=== PATIENT | female | born 2000 | race Caucasian/White ===

== ENCOUNTER → 2023-07-02 08:36 | Outpatient (CLI) | payer MEDICAID, SELFPAY ==
[2023-07-03 07:44] LABS: Progesterone 13.5 ng/mL (.)
== END ==
PROVIDERS: Visit Provider Obstetrics & Gynecology
DX: N92.6 Irregular menstruation, unspecified (principal)
CPT/HCPCS: 36415; 84144; 84702

== ENCOUNTER → 2023-07-12 09:48 | Outpatient (CLI) | payer MEDICAID, SELFPAY ==
[2023-07-12 10:16] LABS: Basophils % 0.3 % (0.1-2.0); Eosinophils % 0.7 % (0.1-12.0); Hematocrit 38.1 % (37.0-47.0); Hemoglobin 12.5 g/dL (12.2-16.2); Lymphocytes # 1.4 K/mm3 (0.7-4.5); Lymphocytes % 26.2 % (10-50); Mean Corpuscular HGB Conc 32.8 g/dL (31.8-35.4); Mean Corpuscular Hemoglobin 29.9 pg (27.0-31.2); Mean Corpuscular Volume 91.2 fl (81-99); Mean Platelet Volume 9.1 fl (7.4-10.4); Monocytes # 0.3 K/mm3 (0.1-1.0); Monocytes % 5.5 % (1.7-9.3); Neutrophils # 3.7 K/mm3 (1.8-7.8); Neutrophils % 67.3 % (37.0-80.0); Platelet Count 266 K/mm3 (142-424); Red Blood Count 4.18 M/mm3 (4.20-5.40); Red Cell Distribution Width 13.4 % (11.5-17.5); White Blood Count 5.5 K/mm3 (4.8-10.8)
[2023-07-13 09:55] LABS: HIV Screen 4th Generation wRfx Non Reactive (Non Reactive)
[2023-07-13 12:12] LABS: Rapid Plasma Reagin Ab Titer Non Reactive titer (NonRea<1:1)
[2023-07-18 12:31] LABS: Hepatitis B Surface Antigen Negative; Hepatitis C Antibody Non Reactive
[2023-07-18 12:32] LABS: Rubella Antibodies, IgG <0.90
== END ==
PROVIDERS: Visit Provider Obstetrics & Gynecology
DX: Z34.91 Encounter for supervision of normal pregnancy, unspecified, first trimester (principal); Z3A.09 9 weeks gestation of pregnancy
CPT/HCPCS: 36415; 85025; 86593; 86703; 86762; 86850; 87086; 87088; 87186; 87340; 87380; G0432

== ENCOUNTER → 2023-07-12 23:26 | Outpatient (CLI) | payer MEDICAID, SELFPAY | PROVIDERS: Visit Provider Obstetrics & Gynecology | DX: Z34.90 Encounter for supervision of normal pregnancy, unspecified, unspecified trimester (principal) ==

== ENCOUNTER → 2023-09-19 07:52 | Outpatient (CLI) | payer MEDICAID, SELFPAY ==
--- NOTE | 2023-09-19 07:53 | US_ITS ---
PROCEDURE: US OB /MATERNAL DETAIL CLINICAL INDICATION: 20 week anatomy scan COMPARISON: No exams were available for comparison FINDINGS: Transabdominal sonographic images of the pelvis were obtained. From her established due date she is 18 weeks 6 days. Single viable intrauterine gestation. Cephalic position. Placenta: Posteriorplacenta grade 1. There is an average amount of fluid. MVP 3.3 cm. The cervix appears satisfactory. Closed and measuring 3.2 cm in length. Complete survey performed and was unremarkable on the submitted images as in PACS. No discrete anomalies identified on survey imaging by technologist. Active fetus. Three-vessel cord with satisfactory umbilical cord insertion. 4- chamber heart noted. Situs, aortic arch, LVOT, RVOT, three-vessel view appear normal. Survey of brain & ventricles Unremarkable. Face and neck survey unremarkable. Profile, nasion, lips and nose appeared normal. Diaphragm and chest views unremarkable. Abdomen: Both kidneys noted and unremarkable. Stomach and bladder noted and satisfactory. Spine: Survey of the spine satisfactory with no anomalies identified nor imaged. Cervical, thoracic and lower spine appear normal. Both arms and legs noted. Amniotic Fluid: Adequate. Measurements: Average ultrasound age 18weeks 6days. Estimated due date by ultrasound age 0402/14/2024. Estimated weight 243g BPD = 19weeks 2days HC = 18weeks 6days AC = 18weeks 4days FL = 18weeks 3days Growth Percentile= 26 Heart Rate = 140bpm Cerebellum = 19weeks 1day Humerus = 18weeks 1day HC/AC is 1.23 FL/BPD is 0.62 FL/AC is 0.21 IMPRESSION: 1. Viable fetus in the cephalic presentation with a posterior placenta grade 1. 2. The fluid is within normal limits. MVP 3.2 cm. 3. Anatomical scan appears normal. 4. biometry is consistent with the dates. Dictated by: Gerardo Aden MD 09/19/2023 09:45 Gerardo Aden MD in OV 09/19/2023 09:45
== END ==
PROVIDERS: PCP Obstetrics & Gynecology; Visit Provider Obstetrics & Gynecology
DX: Z34.92 Encounter for supervision of normal pregnancy, unspecified, second trimester (principal); Z3A.20 20 weeks gestation of pregnancy
CPT/HCPCS: 76811

== ENCOUNTER 2023-10-01 17:47 | Emergency (ER) | payer MEDICAID, SELFPAY ==
[2023-10-01 17:55] VITALS: BP 122/64; PULSE 100; RESP 18; TEMP 36.9; O2SAT 97; BMI 29.7
[2023-10-01 18:09] LABS: Apearance,Urine Clear (Clear); Bilirubin,Urine Negative (Negative); Blood, Urine Negative (Negative); Color,Urine Yellow (Yellow); Glucose,Urine (UA) Negative (Negative); Ketones,Urine Negative (Negative); Protein,Urine Negative (Negative); UTC Leukocyte Esterase,Urine Negative (Negative); UTC Nitrate,Urine Negative (Negative); Urobilinogen,Urine 1 EU/dl (0.2)
[2023-10-01 18:13] LABS: UTC Influenza A Antigen Negative (Negative); UTC Strep Screen (Rapid) Negative (Negative)
[2023-10-01 18:14] LABS: UTC Influenza B Antigen Negative (Negative)
--- NOTE | 2023-10-01 18:16 | EXP.UTC ---
Discharge Plan Disposition Patient Disposition: Xfer Other Condition: Good Prescriptions Prescriptions: No Action Gummies 400 mcg-35 mg- 25 mg-5 mg tablet,chewable 1 tab PO DAILY Referrals Follow up/Referrals: Provider,Referral, MD [Primary Care Provider] - See instructions Clinical Impressions Clinical Impression: Nausea & vomiting Qualifiers: Vomiting type: unspecified Qualified Code(s): R11.2 - Nausea with vomiting, unspecified Diarrhea Qualifiers: Diarrhea type: unspecified type Qualified Code(s): R19.7 - Diarrhea, unspecified Instructions Patient Instructions: Nausea and Vomiting-Adult, Nausea of (Alternative Therapy) Discharge ED Provider: Milagro ([facility])Delphine [facility] [place] HPI General Stated complaint: vomiting, diarrhea, cough, Mode of Arrival: Ambulatory Source of Information: Patient Limitations: No Limitations Time Seen by Provider: 10/01/23 18:17 Description of Symptoms (Recalled from Triage Doc. by RN): vomiting, diarrhea, sore throat, cough, and stomach cramping. SHe is 20 weeks preg. HEENT Symptoms (Recalled from RN notes): No Resp Symptoms (Recalled from RN notes): No Skin Symptoms (Recalled from RN notes): No MS Symptoms (Recalled from RN notes): No Functional Status (Recalled from RN notes): n/a History of Present Illness Provider Complaint: 23 yr old female presents for vomiting, diarrhea, sore throat, cough, and stomach cramping. She is 20 weeks preg. pt states she spoke with dr conley and she was told if she started cramping she needed to go to labor and delivery for eval. pt states she has not been able to eat since thurs and drinks are limited. pt states the last time she felt fluttering was wed. Related Data Home Medications Medication Instructions Recorded Confirmed PNV 153-FA 400 mcg-om3 35 mg-dha 1 tab PO DAILY vitamin 07/12/23 10/01/23 25 mg-epa 5 mg-fish oil chew tablet ( Gummies) Allergies Allergy/AdvReac Type Severity Reaction Status Date / Time No Known Allergies Allergy Verified 10/01/23 18:05 Worker's Comp Is this a Worker's Comp case?: No [facility] Disclaimer: The information contained in this section may have been updated after the patient was seen, as this information can be updated by other users. 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) Smoking Status: Never smoker alcohol intake: never substance use type: denies use current occupational status: employed Travel in the last 8 weeks: None ROS Obtained: Yes All systems reviewed & no additional complaints except as documented Constitutional Constitutional: Reports system reviewed and no additional complaints, except as documented Eyes Eyes: Reports system reviewed and no additional complaints, except as documented ENT Ears, Nose, Mouth, and Throat: Reports system reviewed and no additional complaints, except as documented, Reports as per HPI, Reports nasal congestion, Reports nasal discharge and Reports sore throat Cardiovascular Cardiovascular: Reports system reviewed and no additional complaints, except as documented Respiratory Respiratory: Reports system reviewed and no additional complaints, except as documented Gastrointestinal Gastrointestingal: Reports system reviewed and no additional complaints, except as documented, as per HPI, cramping, diarrhea, nausea and vomiting Genitourinary Female Genitourinary: Reports system reviewed and no additional complaints, except as documented Integumentary/Breasts Skin/Breast:
[2023-10-01 18:21] VITALS: BP 122/64; PULSE 100; RESP 18; TEMP 36.9; O2SAT 97
== END 2023-10-01 18:21 | disposition other institution (70) ==
LOC: UTC 17:50
PROVIDERS: Emergency Provider Nurse Practitioner Family
DX: O26.892 Other specified pregnancy related conditions, second trimester (principal); R10.819 Abdominal tenderness, unspecified site; Z3A.20 20 weeks gestation of pregnancy; R19.7 Diarrhea, unspecified; R05.9 Cough, unspecified; R07.0 Pain in throat; R11.2 Nausea with vomiting, unspecified
CPT/HCPCS: 81003; 87804; 87880; 99204; 99212; G0463

== ENCOUNTER 2023-10-01 18:23 | Outpatient (CLI) | payer MEDICAID, SELFPAY ==
[2023-10-01 18:38] VITALS: BP 139/68; PULSE 84; RESP 18; TEMP 36.9; O2SAT 100; BMI 29.0
== END 2023-10-01 20:45 | disposition home or self-care (01) ==
LOC: OBOUT 18:24 → OB 18:28
PROVIDERS: Visit Provider Obstetrics & Gynecology
DX: O26.892 Other specified pregnancy related conditions, second trimester (principal); Z3A.20 20 weeks gestation of pregnancy; R11.10 Vomiting, unspecified; J02.9 Acute pharyngitis, unspecified; R05.9 Cough, unspecified
CPT/HCPCS: 96365; 96367; G0463; J2405

== ENCOUNTER 2023-11-25 09:01 | Outpatient (CLI) | payer MEDICAID, SELFPAY ==
[2023-11-25 09:30] LABS: Basophils % 0.5 % (0.1-2.0); Eosinophils # 0.1 K/mm3 (0.0-0.4); Eosinophils % 0.9 % (0.1-12.0); Hematocrit 30.3 % (37.0-47.0); Hemoglobin 11.6 g/dL (12.2-16.2); Lymphocytes # 1.3 K/mm3 (0.7-4.5); Mean Corpuscular HGB Conc 38.2 g/dL (31.8-35.4); Mean Corpuscular Hemoglobin 33.7 pg (27.0-31.2); Mean Corpuscular Volume 88.3 fl (81-99); Monocytes # 0.3 K/mm3 (0.1-1.0); Neutrophils # 6.4 K/mm3 (1.8-7.8); Neutrophils % 78.6 % (37.0-80.0); Platelet Count 222 K/mm3 (142-424); Red Blood Count 3.43 M/mm3 (4.20-5.40); Red Cell Distribution Width 13.1 % (11.5-17.5); White Blood Count 8.1 K/mm3 (4.8-10.8)
[2023-11-25] MEDS: RHO(D) IMMUNE GLOBULIN 1,500 UNIT SYRINGE IM (10:55)
[2023-11-25 10:57] LABS: Glucose,Fasting 78 mg/dl (74-100)
[2023-11-25 11:08] VITALS: BP 142/63; PULSE 96; RESP 18; TEMP 36.6; O2SAT 100
[2023-11-25 11:48] LABS: Glucose 1 Hour 94 mg/dL (74-100)
--- NOTE | 2023-11-25 12:00 | PC.NURSE ---
1200-c.narcisa jennings cosigned charting for alex rna
== END 2023-11-25 11:08 | disposition home or self-care (01) ==
PROVIDERS: Visit Provider Obstetrics & Gynecology
DX: O26.893 Other specified pregnancy related conditions, third trimester (principal); Z3A.28 28 weeks gestation of pregnancy; Z67.91 Unspecified blood type, Rh negative
CPT/HCPCS: 36415; 82951; 85025; 96372; J2790

== ENCOUNTER 2023-12-07 17:53 | Outpatient (CLI) | payer MEDICAID, SELFPAY ==
[2023-12-07 19:22] LABS: Strep Scrn Group A (Rapid) Negative (Negative)
== END 2023-12-07 23:59 ==
PROVIDERS: Visit Provider Obstetrics & Gynecology
DX: J02.8 Acute pharyngitis due to other specified organisms (principal)
CPT/HCPCS: 87430

== ENCOUNTER 2023-12-23 11:52 | Outpatient (CLI) | payer MEDICAID, SELFPAY ==
[2023-12-23 12:26] LABS: Basophils % 0.2 % (0.1-2.0); Eosinophils # 0.1 K/mm3 (0.0-0.4); Eosinophils % 0.7 % (0.1-12.0); Hematocrit 34.1 % (37.0-47.0); Lymphocytes # 2.1 K/mm3 (0.7-4.5); Lymphocytes % 24.3 % (10-50); Mean Corpuscular HGB Conc 32.3 g/dL (31.8-35.4); Mean Corpuscular Hemoglobin 28.7 pg (27.0-31.2); Mean Corpuscular Volume 88.8 fl (81-99); Mean Platelet Volume 8.9 fl (7.4-10.4); Monocytes # 0.4 K/mm3 (0.1-1.0); Monocytes % 4.8 % (1.7-9.3); Neutrophils # 6.1 K/mm3 (1.8-7.8); Platelet Count 316 K/mm3 (142-424); Red Blood Count 3.84 M/mm3 (4.20-5.40); Red Cell Distribution Width 13.4 % (11.5-17.5); White Blood Count 8.8 K/mm3 (4.8-10.8)
== END 2023-12-23 23:59 ==
LOC: LAB 11:53
PROVIDERS: Visit Provider Obstetrics & Gynecology
DX: O26.893 Other specified pregnancy related conditions, third trimester (principal); Z3A.36 36 weeks gestation of pregnancy
CPT/HCPCS: 85025

== ENCOUNTER 2024-01-21 13:23 | Outpatient (CLI) | payer MEDICAID, SELFPAY ==
[2024-01-21 13:42] VITALS: BMI 35.2
[2024-01-21 13:46] LABS: Microscopic, Urine URINE MICROSCOPIC (MICROSCOPIC)
[2024-01-21 13:48] LABS: Appearance,Urine CLEAR (Clear); Bilirubin,Urine Negative (Negative); Blood, Urine Negative (Negative); Color,Urine YELLOW (Yellow); Glucose,Urine (UA) Negative (Negative); Ketones,Urine TRACE (Negative); Leukocyte Esterase,Urine Negative (Negative); Nitrate,Urine Negative (Negative); PH,Urine 6.5 (5.0-8.5); Protein,Urine Negative (Negative); Specific Gravity, Urine 1.025 (1.005-1.030); Urobilinogen,Urine 0.2 EU/dl (0.2)
[2024-01-21 13:59] LABS: Bacteria,Urine 1+ /lpf; WBC,Urine Occasional #/hpf (0-3)
[2024-01-21 14:01] LABS: Amphetamine/Metha Screen,Urine Negative ng/ml (<1000)
[2024-01-21 14:02] LABS: Barbiturates Screen,Urine Negative ng/ml (<200); Benzodiazepines Screen,Urine Negative ng/ml (<200)
[2024-01-21 14:03] LABS: Cannabinoid Screen,Urine Negative ng/ml (<50)
[2024-01-21 14:04] LABS: Cocaine Screen,Urine Negative ng/ml (<300); Methadone Screen,Urine Negative ng/ml (<300)
[2024-01-21 14:05] LABS: Opiate Screen,Urine Negative ng/ml (<300); Phencyclidine Screen,Urine Negative ng/ml (<25)
[2024-01-21 14:06] VITALS: BP 121/73; PULSE 94; RESP 18; TEMP 36.8; O2SAT 100; BMI 35.2
== END 2024-01-21 14:32 | disposition home or self-care (01) ==
LOC: OBOUT 13:26 → OB 13:26
PROVIDERS: Visit Provider Obstetrics & Gynecology
DX: O13.3 Gestational [pregnancy-induced] hypertension without significant proteinuria, third trimester (principal); Z3A.36 36 weeks gestation of pregnancy
CPT/HCPCS: 80307; 81001; G0463

== ENCOUNTER 2024-01-26 11:34 | Inpatient (IN) | payer MEDICAID, SELFPAY ==
--- NOTE | 2024-01-26 11:38 | HMH.PHAINT1 ---
Pharmacy Intervention Comments: HOME MEDICATION LIST VERIFIED VIA OUTSIDE PHARMACY
[2024-01-26 11:43] VITALS: BMI 34.7
[2024-01-26 12:19] LABS: Microscopic, Urine URINE MICROSCOPIC (MICROSCOPIC)
[2024-01-26 12:20] LABS: Basophils % 0.3 % (0.1-2.0); Eosinophils % 0.3 % (0.1-12.0); Hematocrit 32.5 % (37.0-47.0); Hemoglobin 10.8 g/dL (12.2-16.2); Lymphocytes % 20.5 % (10-50); Mean Corpuscular HGB Conc 33.1 g/dL (31.8-35.4); Mean Corpuscular Hemoglobin 27.5 pg (27.0-31.2); Mean Corpuscular Volume 83.2 fl (81-99); Mean Platelet Volume 9.3 fl (7.4-10.4); Monocytes # 0.4 K/mm3 (0.1-1.0); Monocytes % 3.6 % (1.7-9.3); Neutrophils # 7.5 K/mm3 (1.8-7.8); Neutrophils % 75.2 % (37.0-80.0); Platelet Count 283 K/mm3 (142-424); Red Blood Count 3.91 M/mm3 (4.20-5.40); Red Cell Distribution Width 14.3 % (11.5-17.5); White Blood Count 9.9 K/mm3 (4.8-10.8)
[2024-01-26 12:24] LABS: Appearance,Urine CLEAR (Clear); Blood, Urine Negative (Negative); Color,Urine YELLOW (Yellow); Glucose,Urine (UA) Negative (Negative); Ketones,Urine 1+ (Negative); Leukocyte Esterase,Urine Negative (Negative); Nitrate,Urine Negative (Negative); Protein,Urine TRACE (Negative); Specific Gravity, Urine 1.025 (1.005-1.030); Urobilinogen,Urine 0.2 EU/dl (0.2)
[2024-01-26] MEDS: DEXTROSE 5%-LACTATED RINGERS 1,000 ML 125 ML IV ×2 (12:31→19:47)
[2024-01-26] MEDS: miSOPROStol 100MCG TABLET 50 MCG PO (12:31)
[2024-01-26] MEDS: LACTATED RINGERS 1000ML 1,000 ML 250 ML IV (12:31)
[2024-01-26 12:35] LABS: Amphetamine/Metha Screen,Urine Negative ng/ml (<1000)
[2024-01-26 12:36] LABS: Barbiturates Screen,Urine Negative ng/ml (<200); Benzodiazepines Screen,Urine Negative ng/ml (<200); Bilirubin,Urine Negative (Negative)
[2024-01-26 12:37] LABS: Cannabinoid Screen,Urine Negative ng/ml (<50); Cocaine Screen,Urine Negative ng/ml (<300)
[2024-01-26 12:38] LABS: Methadone Screen,Urine Negative ng/ml (<300)
[2024-01-26 12:39] LABS: Opiate Screen,Urine Negative ng/ml (<300); Phencyclidine Screen,Urine Negative ng/ml (<25)
[2024-01-26 13:01] VITALS: BP 146/81; PULSE 120; RESP 18; TEMP 36.4; O2SAT 99; BMI 34.7
[2024-01-26 13:36] LABS: Bacteria,Urine 1+ /lpf; Squamous Epithelial Cell,Urine Occasional #/hpf (0-5)
[2024-01-26] MEDS: ACETAMINOPHEN 500MG TAB 1000 MG PO (17:47)
--- NOTE | 2024-01-26 19:21 | EXP.HP ---
History of Present Illness *Admission Date: 01/26/24 *Reason for visit:: Induction *History of present illness: Sara Mack is a 23-year-old G1, P0 at 37 and 2 who presented to labor and delivery for scheduled induction of labor secondary to gestational hypertension. TWAN is 02/14/2024 based on last menstrual period confirmed by first trimester ultrasound. has been complicated by GBS bacteriuria as well. On arrival her blood pressures were 140/80s. She denies any headaches, vision changes, right upper quadrant pain. Sara endorsed good movement, denies any contractions, leakage of fluid, or vaginal bleeding. O-, antibody negative, rubella non-immune, hepatitis B negative, hepatitis C negative, RPR negative, HIV negative 1 hour GTT: 94 GBS bacteriuria PFSH [facility] Disclaimer: The information contained in this section may have been updated after the patient was seen, as this information can be updated by other users. 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 (Updated 01/26/24 @ 19:26 by Lanette Gutierrez DO) Gestational hypertension Screening for genetic disease carrier status GBS bacteriuria Rubella non-immune status, antepartum Rh negative state in antepartum period Surgical History No history of previous surgery Family History Other Diabetes Social History (Updated 01/26/24 @ 15:48 by Purnima Beyer, DEREJE) Smoking Status: Never smoker alcohol intake: never substance use type: denies use current occupational status: employed Travel in the last 8 weeks: None Review of Systems Review of Systems Review of systems (narrative): Review of Systems Constitutional: Denies fever, chills, and sweats Eyes: Denies vision change/ pain Respiratory: Denies cough and shortness of breath Cardiovascular: Denies chest pain and lightheadedness Gastrointestinal: Denies abdominal pain. Denies nausea, vomiting. Genitourinary: Denies dysuria and incontinence Musculoskeletal: Denies shoulder pain and back pain Neurological: Denies change in speech or headaches Meds Home Medications and Allergies Home Medications Medication Instructions Recorded Confirmed Type PNV 153-FA 400 mcg-om3 35 mg-dha 1 tab PO DAILY vitamin 07/12/23 01/26/24 History 25 mg-epa 5 mg-fish oil chew tablet ( Gummies) cyclobenzaprine 5 mg tablet 5 mg PO QHS PRN muscle spasm #30 01/06/24 01/26/24 Rx tabs famotidine 20 mg tablet 20 mg PO BID #60 tabs 01/06/24 01/26/24 Rx New Prescriptions to Start Prescriptions: Allergies Allergy/AdvReac Type Severity Reaction Status Date / Time No Known Allergies Allergy Verified 01/23/24 14:56 Exam Data for Last 24 hours Vital signs and Labs for Last 24 Hours: Temp Pulse Resp BP Pulse Ox O2 Del Method 97.6 F 120 H 18 146/81 H 99 Room Air 01/26/24 13:01 01/26/24 13:01 01/26/24 13:01 01/26/24 13:01 01/26/24 13:01 01/26/24 13:01 Laboratory Results - last 24 hr 01/26/24 11:45: Urine Color Yellow, Urine Appearance Clear, Urine pH 7.0, Ur Specific [place] 1.025, Urine Protein Trace, Urine Glucose (UA) Negative, Urine Ketones 1+, Urine Blood Negative, Urine Nitrate Negative, Urine Bilirubin Negative, Urine Urobilinogen 0.2, Ur Leukocyte Esterase Negative, Urine RBC None, Urine WBC 3-5, Ur Squamous Epith Cells Occasional, Urine Bacteria 1+, Urine Opiates Screen Negative, Urine Methadone Screen Negative, Ur Barbituates Screen Negative, Ur Phencyclidine Scrn Negative, Ur Amphetamines Screen Negative, U Benzodiazepines Scrn Negative, Urine Cocaine Screen Negative, U Marijuana (THC) Screen Negative 01/26/24 12:10: WBC 9.9, RBC 3.91 L, Hgb 10.8 L, Hct 32.5 L, MCV 83.2, MCH 27.5, MCHC 33.1, RDW 14.3, Plt Count 283, MPV 9.3, Neut % (Auto) 75.2, Lymph % (Auto) 20.5, [place] % (Auto) 3.6, Eos % (Auto) 0.3, Baso % (Auto) 0.3, Neut # (Auto) 7.5, Lymph # (Auto) 2.0, [place] # (Auto) 0.4, Eos # (Auto) 0.0, Baso # (Auto) 0.0, Blood Type O Negative, Antibody Screen Negative I & O for Last 24 hours: Intake & Output 01/23/24 01/24/24 01/25/24 01/26/24 23:59 23:59 23:59 23:59 Weight 196 lb Narrative: General: patient is alert oriented in no acute distress and responds appropriately to questions. HEENT: NCAT, EOMI, moist mucous membranes, neck supple with full ROM Cardiovascular: RRR +S1/S2, no murmurs or rubs Pulmonary: Clear to auscultation bilaterally, nonlabored breathing, symmetric chest rise Abdominal: Gravid abdomen appropriate for gestation. No guarding, rebound, or tenderness noted. SVE: On admission c/t/-2/soft/mid position Extremities: trace edema, no tenderness or cyanosis noted Skin: Normal turgor, intact, warm. Negative for erythema, pallor, petechia, or lesions Neurologic: Negative for sensory or motor deficit Psychiatric: Normal affect, normal thought process, good judgment and insight, no depression or anxious mood appreciated. *Routine HEENT Exam Head: Present normocephalic and atraumatic Eye: Present EOMI, PERRL and normal accommodation; Absent conjunctival icterus, scleral injection, nystagmus or exophthalmos ENT: Present mucous membranes moist *Routine Respiratory Exam Respiratory: Present CTA bilaterally, normal respiratory effort, able to speak in complete sentences and symmetric chest movement; Absent accessory muscle use, decreased breath sounds, rales, respiratory distress, wheezes, distant breath sounds or diminished air movement *Routine Cardiovascular Exam Cardiovascular: Present RRR, Normal S1 and Normal S2; Absent murmur or gallop *Routine Abdominal Exam Abdominal: Present soft and normoactive bowel sounds; Absent tenderness, distended, rebound or guarding *Routine Rectal Exam Rectal:: deferred *Routine Genitalia Exam Genitalia:: normal female Assessment and Plan *Assessment and plan (1) Gestational hypertension: Status: Acute Qualifiers: Trimester: third trimester Qualified Code(s): O13.3 - Gestational [-induced] hypertension without significant proteinuria, third trimester Category: Medical Code(s): O13.9 - Gestational [-induced] hypertension without significant proteinuria, unspecified trimester (2) Screening for genetic disease carrier status: Problem Comment: 08/05/23 - [facility] carrier screen negative Status: Acute Category: Medical Code(s): Z13.71 - Encounter for nonprocreative screening for genetic disease carrier status (3) GBS bacteriuria: Problem Comment: Initial OB urine culture demonstrated GBS bactiuria. She will need antibiotics in labor regardless of RV swab. Status: Acute Category: Medical Code(s): R82.71 - Bacteriuria (4) Rubella non-immune status, antepartum: Status: Acute Category: Medical Code(s): O09.899 - Supervision of other high risk pregnancies, unspecified trimester; Z28.39 - Other underimmunization status (5) Rh negative state in antepartum period: Status: Acute Category: Medical Code(s): O26.899 - Other specified related conditions, unspecified trimester; Z67.91 - Unspecified blood type, Rh negative (6) : Status: Acute Qualifiers: Weeks of gestation: 37 weeks Qualified Code(s): Z3A.37 - 37 weeks gestation of Category: Medical Code(s): Z34.90 - Encounter for supervision of normal , unspecified, unspecified trimester (7) Encounter for induction of labor: Status: Acute Category: Medical Code(s): Z34.90 - Encounter for supervision of normal , unspecified, unspecified trimester Plan #37 weeks and 2 days gestation #Induction of labor -Admit to L&D for induction of labor -Plan for induction with 25mcg of vaginal cytotec [id number] per protocol -External FHR and TOCO monitor -Blood type: O+ -Hemoglobin: 10.8, Plt: 283 -Plan for epidural -Anticipate vaginal delivery of Male : Nadeem Yoon #Gestational hypertension -Blood pressures well controlled since arrival -Continue monitor vitals -Continue monitoring PIH labs -Currently not on medications #GBS bacteriuria -Continue GBS prophylaxis with ampicillin, per protocol #Rubella nonimmune -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 Her cervix was previously closed. On reevaluation the cervix was soft and almost a fingertip. A Rowe balloon was able to be inserted with ease after counseling the patient. The balloon will come out after 12 hours. At this time her contractions are still too close together and she is feeling them in her back and lower abdomen to start any other type of augmentation. If her contractions spaced out do not feel she is an appropriate candidate for another dose of Cytotec as it caused uterine tachysystole but she would be a candidate for Pitocin. Discussed low-dose Pitocin to a max of 10 overnight with a Rowe balloon in. In the morning at approximately 0 700 the Rowe balloon will be removed and Pitocin will be started.
[2024-01-26 19:43] LABS: Chloride 109 mmol/L (98-107); Potassium 3.9 mmoL/L (3.5-5.1); Sodium 132 mmol/L (136-145)
[2024-01-26 19:45] LABS: Blood Urea Nitrogen 6 mg/dl (7-17); Creatinine Clearance Estimated 205 mL/min (50-200); Estimated Glomerular Filt Rate 124 ml/min (>60); GFR (African American) 150 ML/MIN (>60)
[2024-01-26 19:46] LABS: Alanine Aminotransferase 21 U/L (12-78); Albumin Level 2.9 g/dl (3.5-5.0); Albumin/Globulin Ratio 1.1 (1.1-1.8); Alkaline Phosphatase 219 U/L (38-126); Anion Gap 6.9 mEq/L (5-15); Aspartate Amino Transferase 29 U/L (14-36); Bilirubin,Total 0.3 mg/dl (0.2-1.3); Calcium 8.7 mg/dl (8.4-10.2); Carbon Dioxide 20 mmol/L (22.0-30.0); Globulin 2.6 g/dL (1.3-3.2); Glucose 124 mg/dl (74-100); Total Protein,Serum 5.5 g/dl (6.3-8.2)
[2024-01-26 21:06] VITALS: BP 123/62; PULSE 80; RESP 17; TEMP 36.6; O2SAT 98
[2024-01-26] MEDS: FAMOTIDINE 20MG TABLET 20 MG PO (21:07)
[2024-01-27 03:52] VITALS: BP 122/77; PULSE 62; RESP 17; TEMP 36.5; O2SAT 100
[2024-01-27] MEDS: AMPICILLIN SODIUM 2 GM in 0.9 % SODIUM CHLORIDE 100 ML IV (04:32)
[2024-01-27] MEDS: OXYTOCIN/RINGERS LACTATE 30 UNITS/500 ML BAG IV (04:32)
[2024-01-27] MEDS: ONDANSETRON 4MG/2ML VIAL 4 MG IV ×2 (05:44→12:41)
[2024-01-27 07:56] VITALS: BP 125/57; PULSE 85; RESP 18; TEMP 36.6; O2SAT 99
--- NOTE | 2024-01-27 09:03 | EXP.LABOR.NO ---
Labor Note Subjective: Date: 01/27/24 Time: 09:03 regular contraction Objective: NST:: Reactive Contractions:: every 2-3 minutes Cervical Dilation:: 1 Effacement:: 80% Station: -2 Membranes: artificially ruptured Fetus: Monitoring?: Yes monitoring type:: External Assessment: Labor progressing?: Yes Problems: (1) 37 weeks gestation of : Category: Medical Code(s): Z3A.37 - 37 weeks gestation of (2) Gestational hypertension: Qualifiers: Trimester: third trimester Qualified Code(s): O13.3 - Gestational [-induced] hypertension without significant proteinuria, third trimester Category: Medical Code(s): O13.9 - Gestational [-induced] hypertension without significant proteinuria, unspecified trimester (3) GBS bacteriuria: Problem Comment: Initial OB urine culture demonstrated GBS bactiuria. She will need antibiotics in labor regardless of RV swab. Category: Medical Code(s): R82.71 - Bacteriuria (4) Rubella non-immune status, antepartum: Category: Medical Code(s): O09.899 - Supervision of other high risk pregnancies, unspecified trimester; Z28.39 - Other underimmunization status (5) Rh negative state in antepartum period: Category: Medical Code(s): O26.899 - Other specified related conditions, unspecified trimester; Z67.91 - Unspecified blood type, Rh negative Plan: Anesthesia for epidural?: Yes Comment:: Amniotomy performed, clear fluid noted Continue pitocin per protocol Close monitoring Plan for epidural
--- NOTE | 2024-01-27 09:04 | EXP.ANES.CKL ---
[facility] Disclaimer: The information contained in this section may have been updated after the patient was seen, as this information can be updated by other users. 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 (Updated 01/27/24 @ 09:01 by Leslee Isidro DO) 37 weeks gestation of Gestational hypertension Screening for genetic disease carrier status GBS bacteriuria Rubella non-immune status, antepartum Rh negative state in antepartum period Surgical History No history of previous surgery Family History Other Diabetes Social History (Updated 01/26/24 @ 15:48 by Purnima Beyer RN) Smoking Status: Never smoker alcohol intake: never substance use type: denies use current occupational status: employed Travel in the last 8 weeks: None [facility] Anesthesia Checklist Patient Identification Patient Identification: Arm Band, Family and Verbal (Name & ) Structural Data Admitted From: Inpatient (OB 278) Planned Operative Procedure/s: Labor Epidural Consent for Planned Operative Procedure(s) Verified: Yes Verified Documents: Surgical Consent and History and Physical NPO Status Verified Time NPO: 00:00 Chart Verification Results Verified: CBC and BMP Additional verifications Patient : Yes Anesthesia Reactions: No Cardiovascular Assessment Heart Sounds: S1 & S2 Pulse Rhythm: Irregular Peripheral Edema: Yes (3+ SHUBHAM LE) Airway Assessment Mallampati Score:: Class I C-Spine Mobility Assessed: Yes (FROM) TMJ Mobility Assessed: Yes Dentition: Good Dentition (Nothing loose per pt.) Neurological Assessment Level of Consciousness: Awake, Alert, Appropriate and Follows Commands Hx Seizures: No Numbness or tingling in extremities: No Anesthesia Plan Anesthesia Risk discussed: Yes Anesthesia Plan: Verified ASA Class: II Anesthesia Type: Epidural
--- NOTE | 2024-01-27 09:05 | EXP.PN ---
Subjective *Date: 01/27/24 *Time: 09:05 Interval history: PROCEDURE NOTE Labor Epidural positioning: Sitting Prep: Betadine x 3 Site: L3-4 Local to skin: Liso 1% x 3mL KENYON to air @ 7.5cm. NEGATIVE CSF, NEGATIVE Heme, NEGATIVE Parasthesia; Catheter easily threaded to 20cm. Test dose: NEGATIVE w/Lido 1.5% w/epi 1:200,000 x 5 mL Catherter pulled back to 15cm @skin. secured. Bolus: Ropivicaine .2% x9mL w/Fentanyl 50mcg. 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 Exam Data for Last 24 hours Vital signs and Labs for Last 24 Hours: Temp Pulse Resp BP Pulse Ox O2 Del Method 97.7 F 62 17 122/77 100 Room Air 01/27/24 03:52 01/27/24 03:52 01/27/24 03:52 01/27/24 03:52 01/27/24 03:52 01/27/24 03:52 Laboratory Results - last 24 hr 01/26/24 11:45: Urine Color Yellow, Urine Appearance Clear, Urine pH 7.0, Ur Specific [place] 1.025, Urine Protein Trace, Urine Glucose (UA) Negative, Urine Ketones 1+, Urine Blood Negative, Urine Nitrate Negative, Urine Bilirubin Negative, Urine Urobilinogen 0.2, Ur Leukocyte Esterase Negative, Urine RBC None, Urine WBC 3-5, Ur Squamous Epith Cells Occasional, Urine Bacteria 1+, Urine Opiates Screen Negative, Urine Methadone Screen Negative, Ur Barbituates Screen Negative, Ur Phencyclidine Scrn Negative, Ur Amphetamines Screen Negative, U Benzodiazepines Scrn Negative, Urine Cocaine Screen Negative, U Marijuana (THC) Screen Negative 01/26/24 12:10: WBC 9.9, RBC 3.91 L, Hgb 10.8 L, Hct 32.5 L, MCV 83.2, MCH 27.5, MCHC 33.1, RDW 14.3, Plt Count 283, MPV 9.3, Neut % (Auto) 75.2, Lymph % (Auto) 20.5, [place] % (Auto) 3.6, Eos % (Auto) 0.3, Baso % (Auto) 0.3, Neut # (Auto) 7.5, Lymph # (Auto) 2.0, [place] # (Auto) 0.4, Eos # (Auto) 0.0, Baso # (Auto) 0.0, Sodium 132 L, Potassium 3.9, Chloride 109 H, Carbon Dioxide 20 L, Anion Gap 6.9, BUN 6 L, Creatinine 0.60, Estimated Creat Clear 205, Estimated GFR 124, Est GFR ( Amer) 150, Glucose 124 H, Calcium 8.7, Total Bilirubin 0.3, AST 29, ALT 21, Alkaline Phosphatase 219 H, Total Protein 5.5 L, Albumin 2.9 L, Globulin 2.6, Albumin/Globulin Ratio 1.1, Blood Type O Negative, Antibody Screen Negative I & O for Last 24 hours: Intake & Output 01/24/24 01/25/24 01/26/24 01/27/24 23:59 23:59 23:59 23:59 Weight 88.904 kg
[2024-01-27] MEDS: AMPICILLIN SODIUM 1 GM in 0.9 % SODIUM CHLORIDE 50 ML IV ×2 (11:06→14:25)
[2024-01-27] MEDS: DEXTROSE 5%-LACTATED RINGERS 1,000 ML 125 ML IV (12:47)
[2024-01-27] MEDS: OXYTOCIN/RINGERS LACTATE 30 UNITS/500 ML BAG 40 UNITS IV (16:43)
--- NOTE | 2024-01-27 17:02 | EXP.DN ---
Delivery Note Delivery Date:: 01/27/24 Delivery Time:: 16:39 Anesthesia Type: Epidural Was labor medically induced?: Yes Induction method: per misoprostol protocol Gestational age (weeks): 37 Infant delivered prior to 39 weeks?: Yes Justification for early elective delivery:: Gestational Hypertension Gender: Male at 1 minute: 7 at 5 minutes: 8 LAC or MLE?: LAC Delivery Procedure:: Mom complete with epidural. Pushed for approximately 1 hour 15 minutes. Head delivered spontaneously over intact perineum in OA position. Nuchal cord x 1 easily reduced. Anterior shoulder delivered with gentle downward pressure. Posterior shoulder and remainder of body delivered spontaneously. Baby placed on maternal abdomen, mouth and nares bulb suctioned, warmed/dried and stimulated. Delayed cord clamping was performed for 60 seconds. Cord was clamped and cut by father of baby. Cord blood was obtained. Placenta delivered spontaneously and intact. Placenta will be sent to pathology for review. Second degree perineal laceration repaired with 3-0 Vicryl. Hemostasis noted. Mom and baby were skin to skin and doing well after delivery. Live male baby (baby's name is Nadeem) APGARs 7 (1 min), 8 (5 min) EBL 150 mL Placental Delivery Description: Spontaneous
[2024-01-27] MEDS: IBUPROFEN 400 MG TABLET 800 MG PO (21:28)
[2024-01-27] MEDS: ACETAMINOPHEN 500MG TAB 1000 MG PO (21:28)
[2024-01-27 21:44] VITALS: BP 128/60; PULSE 82; RESP 17; TEMP 37.2; O2SAT 100
[2024-01-28] MEDS: ACETAMINOPHEN 500MG TAB 1000 MG PO ×2 (03:53→17:13)
[2024-01-28 07:50] LABS: Basophils # 0.1 K/mm3 (0-0.2); Basophils % 0.4 % (0.1-2.0); Eosinophils # 0.1 K/mm3 (0.0-0.4); Eosinophils % 0.6 % (0.1-12.0); Hematocrit 27.3 % (37.0-47.0); Hemoglobin 8.9 g/dL (12.2-16.2); Lymphocytes # 2.6 K/mm3 (0.7-4.5); Lymphocytes % 21.4 % (10-50); Mean Corpuscular HGB Conc 32.5 g/dL (31.8-35.4); Mean Corpuscular Hemoglobin 26.8 pg (27.0-31.2); Mean Corpuscular Volume 82.5 fl (81-99); Mean Platelet Volume 10.1 fl (7.4-10.4); Monocytes # 0.6 K/mm3 (0.1-1.0); Monocytes % 4.8 % (1.7-9.3); Neutrophils # 8.7 K/mm3 (1.8-7.8); Neutrophils % 72.8 % (37.0-80.0); Platelet Count 236 K/mm3 (142-424); Red Blood Count 3.32 M/mm3 (4.20-5.40); Red Cell Distribution Width 14.6 % (11.5-17.5)
[2024-01-28] MEDS: FAMOTIDINE 20MG TABLET 20 MG PO (10:02)
--- NOTE | 2024-01-28 11:37 | P.DS_ITS ---
General Admission date:: 01/26/24 Discharge date: 01/28/24 HPI HPI HPI: PPD # 1 s/p Denisha is feeling well this morning. Pain controlled. Breast feeding. Lochia is appropriate. Voiding without difficulty and passing flatus. Tolerating regular diet. Denies fever/chills, chest pain and shortness of breath. No headaches, vision changes, lightheadedness/dizziness. She admits to lower extremity swelling but it is improving. No calf tenderness. Ambulating well ad tom. Hospital Course Hospital Course Hospital Course: Ms Eli Mack is a 23-year-old G1, P0 at 37 and 2 who presented to labor and delivery for scheduled induction of labor secondary to gestational hypertension. complicated by GBS bacteriuria as well. On arrival her blood pressures were 140/80s. She denies any headaches, vision changes, right upper quadrant pain. Baby was active. She underwent induction of labor with Cytotec followed by Pitocin. She received Ampicillin for GBS prophylaxis. She had a normal spontaneous vaginal delivery on 01/27/24 at 1639. She delivered a live male baby, Nadeem Yoon, weighing 6 lb 6 oz. APGARs 7 (1 min), 8 (5 min). EBL 150 mL. She did well . Pain controlled. Breast feeding. Lochia appropriate. Voiding without difficulty and passing flatus. Tolerating regular diet. Denies fever/chills, chest pain and shortness of breath. No headaches, dizziness/lightheadedness or vision changes. Vital signs stable, afebrile. Heart regular rate and rhythm. Lungs clear to auscultation. Abdomen soft, nontender. She had +1 bilateral lower extremity edema. No calf tenderness to palpation. Ambulating well ad tom. Normal hospital course. She was discharged to home on POD # 1 with instructions to follow-up in the office in 2 weeks or sooner if needed. Exam Data for Last 24 hours Vital signs and Labs for Last 24 Hours: Temp Pulse Resp BP Pulse Ox O2 Del Method 98.9 F 82 17 128/60 100 Room Air 01/27/24 21:44 01/27/24 21:44 01/27/24 21:44 01/27/24 21:44 01/27/24 21:44 01/27/24 21:44 Laboratory Results - last 24 hr 01/28/24 07:15: WBC 12.0 H, RBC 3.32 L, Hgb 8.9 L, Hct 27.3 L, MCV 82.5, MCH 26.8 L, MCHC 32.5, RDW 14.6, Plt Count 236, MPV 10.1, Neut % (Auto) 72.8, Lymph % (Auto) 21.4, Marion % (Auto) 4.8, Eos % (Auto) 0.6, Baso % (Auto) 0.4, Neut # (Auto) 8.7 H, Lymph # (Auto) 2.6, Marion # (Auto) 0.6, Eos # (Auto) 0.1, Baso # (Auto) 0.1, Screen Negative, Baby's Rh Status Positive, Rhogam Infusion Rhogam release I & O for Last 24 hours: Intake & Output 01/25/24 01/26/24 01/27/24 01/28/24 23:59 23:59 23:59 23:59 Weight 196 lb Constitutional Constitutional: no acute distress and cooperative *Routine HEENT Exam Head: Present normocephalic and atraumatic Eye: Absent conjunctivae pink ENT: Present mucous membranes moist *Routine Neck Exam Neck: Present full ROM *Routine Respiratory Exam Respiratory: Present CTA bilaterally and normal respiratory effort *Routine Cardiovascular Exam Cardiovascular: Present RRR *Routine Abdominal Exam Abdominal: Present soft; Absent tenderness or distended Comments: Uterine fundus firm and below umbilicus *Routine Rectal Exam Patient deferred: visual exam *Routine Exam Patient deferred: external exam *Routine Extremities Exam Extremities: Present edema (+1 bilateral lower extremity edema) and full ROM; Absent calf tenderness *Routine Neurological Exam Neurological: Present alert, moving all extremities and normal speech Routine Psychiatric Exam Psychiatric: Present normal affect and cooperative Results Data Completed and Pending Labs on day of discharge: Labs from last 24 hours 01/28/24 07:15 WBC 12.0 H RBC 3.32 L Hgb 8.9 L Hct 27.3 L MCV 82.5 MCH 26.8 L MCHC 32.5 RDW 14.6 Plt Count 236 MPV 10.1 Neut % (Auto) 72.8 Lymph % (Auto) 21.4 Marion % (Auto) 4.8 Eos % (Auto) 0.6 Baso % (Auto) 0.4 Neut # (Auto) 8.7 H Lymph # (Auto) 2.6 Marion # (Auto) 0.6 Eos # (Auto) 0.1 Baso # (Auto) 0.1 Screen Negative Baby's Rh Status Positive Rhogam Infusion Rhogam release DS: Diagnosis Discharge Diagnosis (1) 37 weeks gestation of : Status: Acute Code(s): Z3A.37 - 37 weeks gestation of (2) Gestational hypertension: Status: Acute Code(s): O13.9 - Gestational [-induced] hypertension without significant proteinuria, unspecified trimester Qualifiers: Trimester: third trimester Qualified Code(s): O13.3 - Gestational [-induced] hypertension without significant proteinuria, third trimester (3) GBS bacteriuria: Status: Acute Code(s): R82.71 - Bacteriuria Problem details: Initial OB urine culture demonstrated GBS bactiuria. She will need antibiotics in labor regardless of RV swab. (4) Rubella non-immune status, antepartum: Status: Acute Code(s): O09.899 - Supervision of other high risk pregnancies, unspecified trimester; Z28.39 - Other underimmunization status (5) Rh negative state in antepartum period: Status: Acute Code(s): O26.899 - Other specified related conditions, unspecified trimester; Z67.91 - Unspecified blood type, Rh negative (6) Acute blood loss anemia: Status: Acute Code(s): D62 - Acute posthemorrhagic anemia Meds Home Medications and Allergies Home Medications Medication Instructions Recorded Confirmed Type PNV 153-FA 400 mcg-om3 35 mg-dha 1 tab PO DAILY vitamin 07/12/23 01/26/24 History 25 mg-epa 5 mg-fish oil chew tablet ( Gummies) cyclobenzaprine 5 mg tablet 5 mg PO QHS PRN muscle spasm #30 01/06/24 01/26/24 Rx tabs famotidine 20 mg tablet 20 mg PO BID #60 tabs 01/06/24 01/26/24 Rx ibuprofen 800 mg tablet 800 mg PO Q8H PRN pain #20 tabs 01/28/24 Rx New Prescriptions to Start Prescriptions: Leslee Lee Allergies Allergy/AdvReac Type Severity Reaction Status Date / Time No Known Allergies Allergy Verified 01/23/24 14:56 Discharge Plan Disposition Patient Disposition: Home, Self-Care Condition: Good Discharge Order Discharge Orders: Discharge Order (Routine); Ordered 01/28/24 Ordered By: Leslee Isidro Follow up Plan Follow up with: Leslee Isidro DO [Staff Physician] - 02/10/24 (Call the office on tuesday to setup an appointment for 2 weeks from delivery. ) Prescriptions/Medication Reconciliation: New ibuprofen 800 mg tablet 800 mg PO Q8H PRN (Reason: pain) Qty: 20 0RF Continued famotidine 20 mg tablet 20 mg PO BID Qty: 60 4RF cyclobenzaprine 5 mg tablet 5 mg PO QHS PRN (Reason: muscle spasm) Qty: 30 0RF Gummies 400 mcg-35 mg- 25 mg-5 mg tablet,chewable 1 tab PO DAILY Problem Reconciliation Problems Reviewed?: Yes Patient Discharge Instructions ACTIVITY: Limited activity DIET: continue same diet and regular diet Additional Instructions: Discharge: 1. Take 800 mg Ibuprofen every 8 hours as needed for pain. You can also take 500-1000 mg of Tylenol in between doses, every 6-8 hours. 2. Nothing in the vagina for 6 weeks - no intercourse, douching or tampons. No tub baths/hot tubs or swimming pools 3. Reasons to return to L&D or call On-Call doctor - fever (greater than 100.4) - heavy vaginal bleeding (soaking through 1 pad in less than 2 hours) - vaginal discharge (malodorous and/or purulent) - severe headaches not resolved by medication or rest and leg tenderness/edema 4. depression/blues - Normal to feel anxious/overwhelmed for first 2 weeks - Talk to your doctor if: severe anxiety, trouble bonding with baby, withdrawing from other family members, thoughts of harming yourself or others Leslee Isidro DO [facility] [phone] Patient Instructions: Depression, Hemorrhage, DI for Labor and Delivery, Vaginal , DI for Pre-eclampsia, [facility] Post Discharge Instructions Providers Primary Care Provider: Provider,Referral Admit Provider: Lanette Gutierrez Attending Provider: Lanette Gutierrez
[2024-01-28] MEDS: IBUPROFEN 400 MG TABLET 800 MG PO (17:13)
--- NOTE | 2024-01-30 08:49 | P.PNANES_ITS ---
[facility] Anesthesia Record Part II Anesthesia Record Part II Discharge Time: 21:06 Destination: Obstetric PACU nurse assessment reviewed?: Yes Patient Condition:: Good Anesthesia Complications:: None Swallowing reflex intact?: Yes Airway Patency: Patent Cyanosis?: No Blood Pressure: 123/62 SaO2: 98 Respiratory Rate: 17 Pulse Rate: 80 Temperature: 97.8 F Mental Status: Alert & Oriented Pain level:: 3 Nausea and/or vomitting:: None Intake, IV Amount: 500 Hydration: Adequate
[2024-01-30 08:51] VITALS: BP 123/62; PULSE 80; RESP 17; TEMP 36.6; O2SAT 98
== END 2024-01-28 19:45 | disposition home or self-care (01) | DRG 807 ==
LOC: OBOUT 11:34 → OB 11:34
PROVIDERS: Obstetrics & Gynecology; Admitting Provider Obstetrics & Gynecology; Visit Provider Obstetrics & Gynecology
DX: O13.4 Gestational [pregnancy-induced] hypertension without significant proteinuria, complicating childbirth (principal); Z37.0 Single live birth; Z3A.37 37 weeks gestation of pregnancy; O69.81X0 Labor and delivery complicated by cord around neck, without compression, not applicable or unspecified
CPT/HCPCS: 59409; 59025; 80053; 80307; 81001; 85025; 85461; 86850; 94761; G0283; J0290; J2405; J2790

== ENCOUNTER 2024-01-30 12:44 | Outpatient (CLI) | payer MEDICAID, SELFPAY ==
[2024-01-30] MEDS: RHO(D) IMMUNE GLOBULIN 1,500 UNIT SYRINGE 1500 UNIT IM (13:04)
--- NOTE | 2024-01-30 13:27 | PC.NURSE ---
13:04: Rhogam injection given. 13:15: no reaction noted to Rhogam injection.
== END 2024-01-30 13:20 | disposition home or self-care (01) ==
LOC: OBOUT 12:46 → OB 12:46
PROVIDERS: Visit Provider Nurse Practitioner Obstetrics & Gynecology
DX: O26.899 Other specified pregnancy related conditions, unspecified trimester (principal)
CPT/HCPCS: J2790

== ENCOUNTER 2024-04-05 13:59 | Emergency (ER) | payer MEDICAID, SELFPAY ==
[2024-04-05 14:10] VITALS: BP 132/65; PULSE 70; RESP 21; TEMP 36.6; O2SAT 100; BMI 30.6
--- NOTE | 2024-04-05 14:11 | ED_ITS ---
Discharge Plan Disposition Patient Disposition: Home, Self-Care Condition: Good Prescriptions Prescriptions: New azithromycin [Zithromax] 250 mg tablet 250 mg PO UD DOSE PK Qty: 6 0RF Rx Instructions: Take two (2) tablets today, then one (1) tablet days #2 thru #5 Referrals Follow up/Referrals: Provider,Referral, [Primary Care Provider] - See instructions Activity Restrictions/Add. Instructions Additional Instructions/Restrictions: Drink plenty of fluids. Take tylenol or ibuprofen for pain or fever. Take the medications as directed. Follow up with your regular doctor. GO TO THE ER FOR ANY WORSENING SYMPTOMS Clinical Impressions Clinical Impression: Pharyngitis Instructions Patient Instructions: DI for Pharyngitis/Tonsillopharyngitis -- Adult, DI for Viral Syndrome Discharge ED Provider: [facility] [place] HPI General Stated complaint: cough, fever, runny nose, sore throat Time Seen by Provider: 04/05/24 14:11 History of Present Illness Provider Complaint: She states that for the past 3 days she has had fever, chills, sore throat, and body aches. Related Data Previous Rx's Medication Instructions Recorded azithromycin 250 mg tablet 250 mg PO UD DOSE PK #6 tabs 04/05/24 (Zithromax) Allergies Allergy/AdvReac Type Severity Reaction Status Date / Time No Known Allergies Allergy Verified 02/10/24 10:04 [facility] Disclaimer: The information contained in this section may have been updated after the patient was seen, as this information can be updated by other users. 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 Acute blood loss anemia 37 weeks gestation of Gestational hypertension Screening for genetic disease carrier status 08/05/23 - [facility] carrier screen negative GBS bacteriuria Initial OB urine culture demonstrated GBS bactiuria. She will need antibiotics in labor regardless of RV swab. Rubella non-immune status, antepartum Rh negative state in antepartum period Surgical History No history of previous surgery Family History Other Diabetes Social History (Reviewed 02/10/24 @ 09:58 by Jocelin Pino Smoking Status: Never smoker alcohol intake: never substance use type: denies use current occupational status: employed Travel in the last 8 weeks: None ROS Obtained: Yes All systems reviewed & no additional complaints except as documented Constitutional Constitutional: Reports chills and Reports fever(s) Eyes Eyes: Denies eye discharge ENT Ears, Nose, Mouth, and Throat: Reports as per HPI Cardiovascular Cardiovascular: Denies chest pain Respiratory Respiratory: Denies chest congestion and Reports cough Gastrointestinal Gastrointestingal: Reports nausea; Denies abdominal pain, constipation, cramping, diarrhea or vomiting Musculoskeletal Musculoskeletal: Denies arthralgias Integumentary/Breasts Skin/Breast: Denies rash Neurologic Neurologic: Denies paresthesias Physical Exam General General appearance: alert and in no apparent distress Head Head exam: atraumatic, normocephalic and normal inspection Eye Eye exam: Present normal appearance; Absent PERRL or EOMI ENT ENT exam: Present mucous membranes moist and normal external ear exam Expanded ENT Exam TM/Canal exam: Bilateral TM: erythema, bulging and effusion Nose exam: Absent sinus tenderness Nasal speculum exam: Bilateral: normal Mouth exam: Present normal external inspection and other; Absent drooling Teeth exam: Present normal inspection Throat exam: Present tonsillar erythema and tonsillomegaly Neck Neck exam: Present normal inspection, full ROM and trachea midline; Absent tenderness, meningismus or lymphadenopathy Chest Chest inspection: Present normal inspection and symmetric chest wall rise; Absent tenderness Respiratory Respiratory exam: Present normal lung sounds bilaterally; Absent respiratory distress, wheezes or stridor Cardiovascular Cardiovascular exam: Present regular rate, normal rhythm and normal heart sounds; Absent tachycardia or irregular rhythm Abdominal Exam Abdominal exam: Present soft and normal bowel sounds; Absent distention, tenderness, guarding, rebound or rigidity Extremities Exam Extremities exam: Present normal inspection and normal capillary refill; Absent tenderness, joint swelling or calf tenderness Back Exam Back exam: Present normal inspection and full ROM; Absent tenderness, CVA tenderness (R) or CVA tenderness (L) Neurological Exam Neurological exam: Present alert, oriented X3, CN II-XII intact, normal gait and reflexes normal; Absent motor sensory deficit Psychiatric Psychiatric exam: Present normal affect and normal mood Skin Skin exam: Present warm, dry, intact and normal color Lymphatic Lymphatic Findings: no adenopathy Medical Decision Making Medical Records Medical records reviewed: No I reviewed the patient's medical records. Ulices Inquiry Pt receiving controlled substance: No Lab Data Lab results reviewed: Yes I reviewed the patient's lab results.
[2024-04-05 14:26] LABS: UTC Strep Screen (Rapid) Negative (Negative)
[2024-04-05 15:09] VITALS: BP 132/65; PULSE 70; RESP 21; TEMP 36.6; O2SAT 100
[2024-04-05 15:19] LABS: Adenovirus,PCR Not Detected (NotDetected); Bordetella Pertussis Not Detected (NotDetected); Chlamydophila Pneumoniae, PCR Not Detected (NotDetected); Coronavirus 19, PCR Not Detected (NotDetected); Coronavirus 229E Not Detected (NotDetected); Coronavirus NL63 Not Detected (NotDetected); Coronavirus OC43 Not Detected (NotDetected); Coronovirus HKU1,PCR Not Detected (NotDetected); Human Metapneumovirus Not Detected (NotDetected); Influenza A, PCR Not Detected (NotDetected); Influenza AH1, 2009 Not Detected (NotDetected); Influenza AH1, PCR Not Detected (NotDetected); Influenza AH3,PCR Not Detected (NotDetected); Influenza B, PCR Not Detected (NotDetected); Mycoplasma Pneumoniae, PCR Not Detected (NotDetected); Parainfluenza 1, PCR Not Detected (NotDetected); Parainfluenza 2, PCR Not Detected (NotDetected); Parainfluenza 3, PCR Not Detected (NotDetected); Parainfluenza 4, PCR Not Detected (NotDetected); Respiratory Syncytial Virus Not Detected (NotDetected)
[2024-04-05 20:42] LABS: Rhinovirus/Enterovirus Detected (NotDetected)
== END 2024-04-05 15:18 | disposition home or self-care (01) ==
PROVIDERS: Emergency Provider Nurse Practitioner Family
DX: J02.9 Acute pharyngitis, unspecified (principal); R50.9 Fever, unspecified
CPT/HCPCS: 87581; 87632; 87635; 87798; 87880; 99212; 99214; G0463